=== PATIENT | female | born 1990 | race Caucasian/White ===

== ENCOUNTER 2018-08-14 11:08 | Emergency (ER) | payer OTHER | END 2018-08-14 12:25 | disposition home or self-care (01) | LOC: M ED 11:08 | DX: G50.0 Trigeminal neuralgia (principal); K21.9 Gastro-esophageal reflux disease without esophagitis; F32.9 Major depressive disorder, single episode, unspecified; Z91.040 Latex allergy status; Z91.018 Allergy to other foods; Z79.899 Other long term (current) drug therapy | CPT/HCPCS: 99282 ==

== ENCOUNTER 2018-09-21 15:25 | Emergency (ER) | payer OTHER ==
[2018-09-21] MEDS: PERCOCET 5MG/325MG TAB PO (18:10)
== END 2018-09-21 18:19 | disposition home or self-care (01) ==
LOC: M ED 15:25
DX: M26.633 Articular disc disorder of bilateral temporomandibular joint (principal); F33.9 Major depressive disorder, recurrent, unspecified; K21.9 Gastro-esophageal reflux disease without esophagitis; K58.9 Irritable bowel syndrome, unspecified; Z79.899 Other long term (current) drug therapy; Z91.018 Allergy to other foods; Z91.040 Latex allergy status
CPT/HCPCS: 99283

== ENCOUNTER 2024-07-15 13:31 | Emergency (ER) | payer OTHER ==
[~2024-07-15] VITALS: Ht 152.4 cm; Wt 115.9 kg
[~2024-07-15 13:31] MED LIST: AMIT25TA19 PO; CARB200C4 PO; EPIP0.3I2 IM; NAPR-837 PO; PANT40TA29 PO; RANI1SYP PO; SERT-141 PO
[2024-07-15] MEDS ORDERED: ACET1TAB55 PO (14:03)
[2024-07-15] MEDS ORDERED: ONDA-282 PO (17:40)
[2024-07-15 17:45] VITALS: BP 115/54; TEMP 98.4; O2SAT 98
[2024-07-15] MEDS: KETOROLAC 60MG 2ML VIAL IM ONE (17:50)
[2024-07-15] MEDS: ONDANSETRON 4MG ORAL DISINTEGRATING TAB PO ONE (17:50)
== END 2024-07-15 17:59 | disposition home or self-care (01) ==
LOC: M ED 13:31
DX: S06.0X0A Concussion without loss of consciousness, initial encounter (principal); W50.0XXA Accidental hit or strike by another person, initial encounter; Y92.9 Unspecified place or not applicable; Y93.9 Activity, unspecified; Y99.0 Civilian activity done for income or pay; F32.A Depression, unspecified; K21.9 Gastro-esophageal reflux disease without esophagitis; Z79.899 Other long term (current) drug therapy; Z91.040 Latex allergy status; Z91.018 Allergy to other foods
CPT/HCPCS: 70450; 96372; 99283; J1885